=== PATIENT | male | born 2000 | race Caucasian/White ===

== ENCOUNTER 2023-07-14 16:43 | Emergency (ER) | payer OTHER, SELFPAY ==
[2023-07-14 16:51] VITALS: BP 128/105
--- NOTE | 2023-07-14 17:40 | ED.GENMED ---
History of Present Illness
General
Chief Complaint: Head Injury
Source: patient and significant other
Exam Limitations: none
Time Seen by Provider: 07/14/23 17:38
Travel History
Have you had any contact with someone who has COVID-19?: No
Do you have any symptoms of coronavirus? Fever > 100 degrees, chills, cough, shortness of breath, sore throat, loss of taste or smell, muscle aches, or headache?: No
History of Present Illness
History of Present Illness:
23-year-old male presents after a fall snowboarding was wearing a helmet reportedly was at [facility] believes he struck his head has a headache he has some periods of confusion some pain in his anterior chest, no abdominal pain no nausea or
vomiting no alcohol no blood thinner
Past History
Past History
ED Past Medical History: None
ED Past Surgical History: None
Social History
Tobacco: Non-smoker
Alcohol: None
Drug: None
Personal: Single
Living: with family
Employment: Employed
Review of Systems
Review of Systems
All Other Systems: Not applicable
Respiratory: Denies cough or trouble breathing
Cardiac: Reports chest pain (Chest wall pain)
ABD/GI: Reports no symptoms
: Reports no symptoms
Musculoskeletal: Reports no symptoms; Denies joint pain or muscle stiffness
Neurological: Reports headache
Phy Exam
Physical Exam
Physical Exam:
Physical Exam
General: 22-year-old male cooperative
Neck: No jaundice
Heart: s1/s2 regular rate and rhythm, no murmur. equal radial pulses.
Lungs: no acute respiratory distress. No point tenderness on the chest
Abdomen: Softnontender
Neuro: Moves all extremities, slow to respond although oriented to person place and time
Skin: no rash
Psychiatric: cooperative
Extremities: no edema.
Course
Orders/Labs/Results
Orders:
Orders
07/14/23 17:35
CT Head W/o Iv Contrast Urgent
Comment:
Reason For Exam: head injury w/ lapses in memory.
07/14/23 17:38
CT Cervical Spine W/o Iv Contr Urgent
Comment:
Reason For Exam: trauma
07/14/23 17:41
CR Chest - 2 Views Urgent
Comment:
Reason For Exam: fall
07/14/23 18:06
Ibuprofen [Motrin] 600 mg PO NOW STA
Vital Signs
Initial and Last Documented VS:
Initial Vital Signs
Temp Pulse Resp BP Pulse Ox
98.3 F 88 16 128/105 99
07/14/23 16:51 07/14/23 16:51 07/14/23 16:51 07/14/23 16:51 07/14/23 16:51
Last Documented Vital Signs
Temp Pulse Resp BP Pulse Ox
98.3 F 88 16 128/105 99
07/14/23 16:51 07/14/23 16:51 07/14/23 16:51 07/14/23 16:51 07/14/23 16:51
MDM/Problems Addressed
Differential Diagnosis Includes:
Concussion head injury skull fracture subdural subarachnoid pneumothorax rib fracture
MDM/Problems Addressed:
Head trauma chest
*Radiology
Radiology exam reviewed: preliminary read by ED provider
*Pulse Oximetry
Patient hypoxic: no
*Critical Care Note
Total Time (30-74mins, 75-104mins- exclusive of procedures): Not Applicable
Update Note
Update Note:
636 CT reports noted chest x-ray noted no pneumothorax seen, full report pending
[address] report noted
Patient's mental status a bit better than earlier, does not remember me talking to him earlier, he now knows he is at [place],
He has had concussions previously encouraged no contact sports no skiing or snowboarding the season is in agreement he will hold his girlfriend who is with him keep out of work for couple days
ED Attending Note
-
Portions of this chart may have been created with voice recognition software.� Occasional wrong word or��sound alike� substitutions may have occurred due to the inherent limitations of voice recognition software.
Discharge Plan
Departure
Patient Disposition: Home (Routine Discharge)
Date of Disposition: 07/14/23
Time of Disposition: 18:36
Patient with high blood pressure during this ER visit?: No
Discharge Problem:
Head injury
Instructions: Concussion, Adult (DC), Head Injury in Adults (DC), Contusion (DC)
Prescriptions:
New
ibuprofen 600 mg tablet
600 mg PO Q6H PRN (Reason: Pain) Qty: 20 0RF
ondansetron 4 mg tablet,disintegrating
4 mg PO Q8H PRN (Reason: nausea and vomiting) Qty: 10 0RF
Referrals:
NONE,* [Family Provider] -
David Hernandez MD [Active] - Next open appointment
Stand Alone Forms: Return to Work
Activity Restrictions/Additional Instructions:
Ice the area that hurt, Tylenol or ibuprofen for pain
Interventions
Interventions:
*Risk Screen - Suicide Last Done: 07/14/23 17:42
*General Assessment Last Done: 07/14/23 17:42
*Neglect/Abuse Screening Last Done: 07/14/23 17:42
ED- Fall Risk Assessment Last Done: 07/14/23 17:42
*ED COVID-19 Vaccine History Last Done: 07/14/23 16:51
ED- Neurological Assessment Last Done: 07/14/23 17:42
ED-Skin Assessment Last Done: 07/14/23 17:42
[2023-07-14 17:42] VITALS: BMI 26.3
--- NOTE | 2023-07-14 18:23 | EDRN ---
On return from xray pt could not remember what he had done xray or CT nor of what he had a CT of or an xray of.
[2023-07-14] MEDS: MOTRIN 600 MG PO (18:30)
[2023-07-14 20:12] VITALS: BP 122/72
== END 2023-07-14 20:15 | disposition home or self-care (01) ==
LOC: EMR 16:43
PROVIDERS: EMERGENCY PHYSICIAN Emergency Medicine
DX: S09.90XA Unspecified injury of head, initial encounter (principal); V00.311A Fall from snowboard, initial encounter; Y93.23 Activity, snow (alpine) (downhill) skiing, snowboarding, sledding, tobogganing and snow tubing
CPT/HCPCS: 99284; 70450; 71046; 72125